=== PATIENT | female | born 2000 | race Caucasian/White ===

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

== ENCOUNTER 2021-06-14 12:04 | Emergency (ER) | payer OTHER, SELFPAY ==
--- NOTE | ~2021-06-14 | XR_ITS ---
EXAMINATION: XR chest 1V portable EXAM DATE: 06/14/2021 13:35 INDICATION: Cough, recent pneumonia TECHNIQUE: Portable AP frontal chest x-ray was obtained. There is no prior study for comparison. FINDINGS: Lungs are clear. There are no pleural effusions. The cardiomediastinal silhouette is with in normal limits. There is no pneumothorax suspected. The bones and soft tissues are unremarkable. IMPRESSION: Unremarkable chest x-ray exam. Reviewed, dictated and finalized at location B. ING CENTER DIRECTOR
[2021-06-14 12:08] VITALS: BP 141/73; PULSE 100; RESP 16; TEMP 36.3; O2SAT 98
--- NOTE | 2021-06-14 13:50 | ED.URI ---
HPI - URI/Sore Throat General Chief Complaint: Upper Respiratory Infection Stated Complaint: cough Time Seen by Provider: 06/14/21 13:17 Source: patient Mode of arrival: ambulatory Limitations: no limitations History of Present Illness HPI Narrative: This is a 21 year old female that presents to the ER for cold symptoms present over the last week. Reports cough, congestion, chills, chest tightness and shortness of breath. She has not received the covid or flu vaccines. Reports she had recent exposure to someone with pneumonia. Denies fever, or lower extremity edema. Related Data Allergies Allergy/AdvReac Type Severity Reaction Status Date / Time No Known Allergies Allergy Verified 06/14/21 13:13 Review of Systems Review of Systems: CONSTITUTIONAL: Denies fever ENT: Reports congestion CARDIOVASCULAR: Reports chest pain. Denies edema. RESPIRATORY: Reports cough and dyspnea. All systems reviewed & are unremarkable except as noted in HPI and below PMFSH Past Medical History Medical History (Updated 06/14/21 @ 16:10 by Padmaja Maddox PA-C) No active medical problems Social History Social History (Updated 06/14/21 @ 13:53 by Padmaja Maddox PA-C) Smoking status: Never smoker Exam Narrative: GENERAL: Well-appearing, well-nourished, and in no acute distress. HEAD: Normocephalic, atraumatic. EYES: EOMI. ENT: Nares clear, no rhinorrhea or epistaxis. Mucous membranes moist. Oropharynx without tonsillar hypertrophy exudate or other lesions. Left TM pearly corado non-bulging. Right external auditory canal with cerumen impaction NECK: Supple. No adenopathy or masses. CHEST: No respiratory distress. Mild scattered wheezes. No rales or rhonchi HEART: Regular rate and rhythm. No murmur heard. Normal peripheral pulses. EXTREMITIES: Normal range of motion. No edema. SKIN: Warm, dry, no rash. NEURO: No focal deficits. Alert and oriented x3. PSYCH: Normal mood and affect Course Vital Signs Vital signs: Vital Signs Temperature 97.4 F L 06/14/21 12:08 Pulse Rate 100 06/14/21 12:08 Respiratory Rate 16 06/14/21 12:08 Blood Pressure 141/73 H 06/14/21 12:08 Pulse Oximetry 98 06/14/21 12:08 Temperature 97.4 F L 06/14/21 12:08 Pulse Rate 100 06/14/21 12:08 Respiratory Rate 16 06/14/21 12:08 Blood Pressure 141/73 H 06/14/21 12:08 Pulse Oximetry 98 06/14/21 12:08 MDM - URI/Sore Throat MDM Narrative Medical decision making narrative: Patient presents to the emergency department for cold symptoms ongoing over the last week. She is afebrile and nontoxic-appearing. Oxygen saturation has remained normal on room air. Scattered wheezes noted on exam. Patient given dose of prednisone and albuterol with improvement. CBC and metabolic panel without concerning findings. EKG without acute ST changes and baseline troponin is negative. Influenza screen is negative. SARS-CoV-2 was sent. Chest x-ray without acute cardiopulmonary abnormality. Patient is PERC criteria negative. Patient was updated on case findings. She is stable and felt appropriate for further outpatient evaluation. Was instructed on continued care of viral infection. She was given warnings to return to the ER Lab Data Attestation: I reviewed the patient's lab results. Result diagrams: 06/14/21 14:17 06/14/21 14:17 Labs: Lab Results 06/14/21 06/14/21 06/14/21 Range/Units 14:05 14:17 14:17 WBC 8.4 (4.5-10.0) K/mm3 RBC 4.38 (4.2-5.4) M/mm3 Hgb 12.9 (12.0-15.0) g/dL Hct 38.9 (37.0-47.0) % MCV 88.8 (80-100) fl MCH 29.5 (26-34) pg MCHC 33.2 (32-36) g/dl RDW 11.9 (11.5-14.5) % Plt Count 386 H (150-375) k/mm3 MPV 9.2 (7.4-10.4) fl Immature Gran % (Auto) 0.5 (0-0.5) % Neut % (Auto) 59.1 (45.5-73.1) % Lymph % (Auto) 31.3 (18.3-44.2) % [place] % (Auto) 5.7 (2.6-8.5) % Eos % (Auto) 2.2 (0-4.4) % Baso % (Auto) 1.2 (0.2-1.2) % L
[2021-06-14] MEDS: ALBUTEROL SULFATE (*SP) AEROSOL 1 PUFF 2 PUFF INHALATION (13:57)
[2021-06-14] MEDS: predniSONE 20 MG TABLET 40 MG PO (14:13)
[2021-06-14 14:22] LABS: Basophils Absolute Auto 0.1 K/mm3 (0.0-0.1); Basophils Percent Auto 1.2 % (0.2-1.2); Eosinophils Absolute Auto 0.2 K/mm3 (0-0.3); Eosinophils Percent Auto 2.2 % (0-4.4); Hematocrit 38.9 % (37.0-47.0); Hemoglobin 12.9 g/dL (12.0-15.0); Immature Granulocyte Absolute 0.04 K/mm3 (0.00-0.031); Immature Granulocyte Percent A 0.5 % (0-0.5); Lymphocytes Absolute Auto 2.62 K/mm3 (0.9-3.2); Lymphocytes Percent Auto 31.3 % (18.3-44.2); Mean Corpuscular HGB Conc 33.2 g/dl (32-36); Mean Corpuscular Hemoglobin 29.5 pg (26-34); Mean Corpuscular Volume 88.8 fl (80-100); Mean Platelet Volume 9.2 fl (7.4-10.4); Monocytes Absolute Auto 0.5 K/mm3 (0.1-0.6); Monocytes Percent Auto 5.7 % (2.6-8.5); Neutrophils Absolute Auto 4.9 K/mm3 (1.3-6.7); Neutrophils Percent Auto 59.1 % (45.5-73.1); Platelet Count Result 386 k/mm3 (150-375); Red Blood Count 4.38 M/mm3 (4.2-5.4); Red Cell Distribution Width 11.9 % (11.5-14.5); White Blood Count 8.4 K/mm3 (4.5-10.0)
[2021-06-14 14:37] LABS: Anion Gap 6 mmol/L (8-16); Blood Urea Nitrogen 11 mg/dL (7-17); Calcium 9.2 mg/dL (8.4-10.2); Carbon Dioxide 28 mmol/L (22-30); Chloride 104 mmol/L (98-107); Estimated CRCL calculation 113 ml/min; Estimated Glomerular Filt Rate > 60; Glucose 100 mg/dL (65-110); Potassium 3.8 mmol/L (3.4-5.0); Sodium 138 mmol/L (137-145)
[2021-06-14 14:39] LABS: Prothrombin Time 12.7 Seconds (11.1-14.7)
[2021-06-14 14:40] LABS: Partial Thromboplastin Time 29.8 SECONDS (22.3-36.8)
[2021-06-14 14:52] LABS: Troponin I < 0.012 ng/mL (0.000-0.034)
--- NOTE | 2021-06-14 15:00 | ECG_ITS ---
Measurements Intervals [place] Rate: 76 P: 7 SC: 112 QRS: 22 QRSD: 97 T: 1 QT: 373 QTc: 420 Interpretive Statements SINUS RHYTHM WITH SHORT SC INTERVAL INCOMPLETE RIGHT BUNDLE BRANCH BLOCK CONSIDER INFERIOR INFARCT, AGE INDETERMINATE BASELINE ARTIFACT- I, II, AVR BORDERLINE ECG Electronically Signed On 06-14-2021 20:05:48 SPANISH INTERPRETER by Bull Ward D.O.
[2021-06-14 16:46] VITALS: PULSE 92; RESP 16; O2SAT 98
[2021-06-16 14:03] LABS: SARS-CoV-2 RNA PCR Negative (Negative)
== END 2021-06-14 16:47 | disposition home or self-care (01) ==
PROVIDERS: Physician Assistant; Emergency Provider Emergency Medicine
DX: J20.9 Acute bronchitis, unspecified (principal); Z20.822 Contact with and (suspected) exposure to COVID-19
CPT/HCPCS: 36415; 71045; 80048; 84484; 85025; 85610; 85730; 87804; 93005; 94640; 99284; A9270; C9803; J7512; U0003; U0005

== ENCOUNTER 2021-08-25 13:02 | Outpatient (CLI) | payer OTHER, SELFPAY ==
[2021-08-25 14:11] LABS: Alanine Aminotransferase 16 U/L (4-35); Albumin Level 4.7 g/dL (3.5-5.1); Alkaline Phosphatase 52 U/L (38-126); Anion Gap 11 mmol/L (8-16); Aspartate Amino Transferase 20 U/L (14-36); Bilirubin,Total 1.2 mg/dL (0.2-1.3); Blood Urea Nitrogen 10 mg/dL (7-17); Calcium 9.2 mg/dL (8.4-10.2); Carbon Dioxide 23 mmol/L (22-30); Chloride 104 mmol/L (98-107); Estimated Glomerular Filt Rate > 60; Glucose 122 mg/dL (65-110); Potassium 3.7 mmol/L (3.4-5.0); Sodium 138 mmol/L (137-145)
[2021-08-25 14:29] LABS: Free T4 Free Thyroxine 0.83 ng/mL (0.78-2.19); Vitamin D 25 Hydroxy 34.2 ng/mL
[2021-08-25 14:45] LABS: Thyroid Stimulating Hormone 0.906 uIU/mL (0.465-4.680)
[2021-08-25 15:32] LABS: Folic Acid 13.8 ng/mL (2.76->20)
[2021-08-29 05:33] LABS: DHEA-Sulfate 386 mcg/dL (51-321); Insulin Level Total 141.2 uIU/mL (<=19.6); Thyroid Peroxidase Antibodies 51 IU/mL (<9)
[2021-09-01 06:12] LABS: Triiodothyronine T3 Free 3.4 pg/mL (3.0-4.7)
[2021-09-02 17:59] LABS: Testosterone Free 4.6 pg/mL (0.1-6.4); Testosterone Total 24 ng/dL (2-45)
== END 2021-08-25 13:03 | disposition home or self-care (01) ==
LOC: ANHLAB 13:05
PROVIDERS: Visit Provider Internal Medicine Endocrinology, Diabetes & Metabolism
DX: E28.2 Polycystic ovarian syndrome (principal); E06.3 Autoimmune thyroiditis; E55.9 Vitamin D deficiency, unspecified; E53.8 Deficiency of other specified B group vitamins
CPT/HCPCS: 36415; 80053; 82306; 82607; 82627; 82746; 83525; 84402; 84403; 84439; 84443; 84481; 86376

== ENCOUNTER 2022-02-21 13:32 | Emergency (ER) | payer OTHER, SELFPAY ==
[2022-02-21 13:48] VITALS: BP 135/71; PULSE 98; RESP 18; TEMP 37.4; O2SAT 99
--- NOTE | 2022-02-21 13:52 | ED.GENADULT ---
HPI - General Adult General Chief complaint: Eye Problems Stated complaint: lt eye irritation History of Present Illness HPI narrative: Pleasant 21 y/o female. PMHx non-contributory. Presents to [facility] clinic today with acute complaints of LT eye irritation, lacrimation, and pruritus. Manifestations present for the past 72 hours. No eye pain or visual loss. No direct visual traumas. She does not wear corrective prescriptive lenses. Client also notes crustation on her lower lid when awakening in AM. No congestion or additional concerns. Related Data Home Medications Medication Instructions Recorded Confirmed No Home Medications 02/21/22 02/21/22 Allergies Allergy/AdvReac Type Severity Reaction Status Date / Time No Known Allergies Allergy Verified 02/21/22 13:51 Review of Systems Review of Systems: CONSTITUTIONAL: Denies fever, chills, sweats. EYES: Denies visual changes. Positive redness, discharge LT. ENT: Denies rhinorrhea, congestion, sore throat, otalgia. CARDIOVASCULAR: Denies chest pain, palpitations, edema. RESPIRATORY: Denies dyspnea, wheezing, cough GASTROINTESTINAL: Denies abdominal pain, nausea, vomiting, diarrhea. GENITOURINARY: Denies dysuria, hematuria, abnormal discharge SKIN: Denies rash or itching. MUSCULOSKELETAL: Denies acute back pain, joint pain, or myalgia. NEUROLOGIC: Denies numbness, or focal weakness. PSYCHIATRIC: Denies anxiety or depression. [facility] Past Medical History Medical History No active medical problems Social History Social History Smoking status: Never smoker Exam Narrative: GENERAL: This is a well-nourished, well-developed adult, in no apparent distress. HEAD: normocephalic, atraumatic. EYES: PERRL. Sclera clear/white RT. There is LT conjunctival erythema and residual yellow drainage to lower lid. EOM movements intact. MAMTA. Visual acuity 20/25 bilaterally. EARS: External ears normal. NOSE: External nose normal. THROAT: Mucous membranes moist. NECK: Neck supple, non-tender. CARDIOVASCULAR: Regular rate and rhythm. RESPIRATORY: Clear to auscultation. GASTROINTESTINAL: Abdomen soft, non-tender, nondistended. SKIN: warm, intact NEURO: Alert, active, and age appropriate. Course Course Level of Care: Express Care Visit Vital Signs Vital signs: Vital Signs Temperature 37.4 C 02/21/22 13:48 Pulse Rate 98 02/21/22 13:48 Respiratory Rate 18 02/21/22 13:48 Blood Pressure 135/71 02/21/22 13:48 Pulse Oximetry 99 02/21/22 13:48 Oxygen Delivery Room Air 02/21/22 13:48 Temperature 37.4 C 02/21/22 13:48 Pulse Rate 98 02/21/22 13:48 Respiratory Rate 18 02/21/22 13:48 Blood Pressure 135/71 02/21/22 13:48 Pulse Oximetry 99 02/21/22 13:48 Oxygen Delivery Room Air 02/21/22 13:48 Medical Decision Making MDM Narrative Medical decision making narrative: -PE consistent with Conjunctivitis LT. -No visual deficits. -Start OP Neomycin/Polymyxin HC Ophthalmic Gtts regimen as directed. -Resume additional hand hygiene and cool compress remedies prn. -PCP F/U 1 WK. -ER W/sudden severe visual pain or loss. Differential Diagnosis Differential Diagnosis: Differential Diagnosis: Consideration of the following conditions may be warranted for the presenting problem, they are not final diagnoses: Adult Blepharitis, Conjunctivitis, Chemical Burn, Contact Lens Complications, Dry eyes, Epidemic Keratoconjunctivitis, Episcleritis, Acute Angle-Closure Glaucoma. or other. Vital Signs Vital Signs: Vital Signs Temperature 37.4 C 02/21/22 13:48 Pulse Rate 98 02/21/22 13:48 Respiratory Rate 18 02/21/22 13:48 Blood Pressure 135/71 02/21/22 13:48 Pulse Oximetry 99 02/21/22 13:48 Oxygen Delivery Room Air 02/21/22 13:48 Temperature 37.4 C 02/21/22 13:48 Pulse Rate 98 02/21
== END 2022-02-21 13:55 | disposition home or self-care (01) ==
PROVIDERS: Emergency Provider Nurse Practitioner Adult Health
DX: H10.9 Unspecified conjunctivitis (principal)
CPT/HCPCS: 99213; G0463

== ENCOUNTER 2023-02-12 14:28 | Outpatient (CLI) | payer OTHER, SELFPAY ==
--- NOTE | ~2023-02-12 | XR_ITS ---
EXAMINATION: XR lumbar spine 2-3V DATE: 02/12/2023 14:42 INDICATION: Low back pain TECHNIQUE: Anteroposterior and lateral views of the lumbar spine, and cone-down lateral view of the l umbosacral junction were obtained. COMPARISON: None. FINDINGS: No fracture, dislocation, or subluxation. The vertebral body heights, alignment, and interv ertebral disc spaces are normal. The paravertebral soft tissues are unremarkable. IMPRESSION: 1. No acute osseous abnormality. Reviewed, dictated and finalized at location L.
== END 2023-02-12 14:29 | disposition home or self-care (01) ==
PROVIDERS: Visit Provider Family Medicine
DX: M54.50 Low back pain, unspecified (principal)
CPT/HCPCS: 72100

== ENCOUNTER 2024-04-28 10:23 | Outpatient (CLI) | payer OTHER, SELFPAY ==
[2024-04-28 10:27] VITALS: BP 138/81; PULSE 71
[2024-04-28 10:45] VITALS: BP 138/81; PULSE 79
[2024-04-28 10:57] LABS: Add Urine Microscopic? YES; Appearance Urine Cloudy (Clear); Bacteria Urine Rare /hpf; Bilirubin Urine Negative (Negative); Blood Urine Negative (Negative); Color Urine Yellow (Yellow); Glucose Urine UA Negative (Negative); Ketones Urine Negative (Negative); Leukocyte Esterase Ur 1+ LEU/UL (Negative); Nitrate Urine Negative (Negative); Non Pathogenic Casts 0-2; Protein Urine 1+ mg/dL (Negative); RBC Urine 0-2 /hpf (0-2); Specific Grav Ur 1.017 (1.001-1.035); Squamous Epithelial Cell Urine Moderate /hpf (Few); Urobilinogen Urine 0.2 mg/dL (<2.0)
[2024-04-28 10:59] LABS: Creatinine Urine 106.8 mg/dL; Total Protein Urine Random 29 mg/dL; Ur Ttl Prot Creatinine Ratio 0.27 mg/mg (0-0.20)
[2024-04-28 11:00] VITALS: BP 137/85; PULSE 71
[2024-04-28 11:04] LABS: Alanine Aminotransferase 13 U/L (6-35); Albumin Level 3.3 g/dL (3.5-5.1); Alkaline Phosphatase 106 U/L (38-126); Anion Gap 8 mmol/L (4-12); Aspartate Amino Transferase 16 U/L (14-36); Bilirubin,Total 0.3 mg/dL (0.2-1.3); Blood Urea Nitrogen 5 mg/dL (7-17); Calcium 8.5 mg/dL (8.4-10.2); Carbon Dioxide 21 mmol/L (22-30); Chloride 106 mmol/L (98-107); Estimated Glomerular Filt Rate > 60; Glucose 81 mg/dL (65-110); Potassium 3.6 mmol/L (3.4-5.0); Sodium 135 mmol/L (137-145); Uric Acid 5.4 mg/dL (2.5-7.5)
[2024-04-28 11:05] LABS: Basophils Absolute Auto 0.1 K/mm3 (0.0-0.1); Basophils Percent Auto 0.6 % (0.2-1.2); Eosinophils Absolute Auto 0.2 K/mm3 (0-0.3); Eosinophils Percent Auto 1.8 % (0-4.4); Hematocrit 33.8 % (37.0-47.0); Hemoglobin 11.4 g/dL (12.0-15.0); Immature Granulocyte Absolute 0.05 K/mm3 (0.00-0.031); Immature Granulocyte Percent A 0.5 % (0-0.5); Lymphocytes Absolute Auto 2.02 K/mm3 (0.9-3.2); Lymphocytes Percent Auto 18.9 % (18.3-44.2); Mean Corpuscular HGB Conc 33.7 g/dl (32-36); Mean Corpuscular Hemoglobin 30.4 pg (26-34); Mean Corpuscular Volume 90.1 fl (80-100); Mean Platelet Volume 10.4 fl (7.4-10.4); Monocytes Absolute Auto 0.7 K/mm3 (0.1-0.6); Monocytes Percent Auto 6.1 % (2.6-8.5); Neutrophils Absolute Auto 7.7 K/mm3 (1.3-6.7); Neutrophils Percent Auto 72.1 % (45.5-73.1); Platelet Count Result 257 k/mm3 (150-375); Red Blood Count 3.75 M/mm3 (4.2-5.4); Red Cell Distribution Width 12.9 % (11.5-14.5); White Blood Count 10.7 K/mm3 (4.5-10.0)
[2024-04-28 11:15] VITALS: BP 136/85; PULSE 71
[2024-04-28 11:30] VITALS: BP 144/88; PULSE 69
[2024-04-28 11:52] VITALS: TEMP 36.6
== END 2024-04-28 11:30 | disposition home or self-care (01) ==
LOC: ANHOBOP 10:26 → ANHOBPP 10:28
PROVIDERS: Visit Provider Obstetrics & Gynecology
DX: O16.9 Unspecified maternal hypertension, unspecified trimester (principal); Z3A.00 Weeks of gestation of pregnancy not specified
CPT/HCPCS: 36415; 59025; 80053; 81001; 82570; 84156; 84550; 85025; 87086; 99199

== ENCOUNTER 2024-04-29 13:04 | Outpatient (NON) | payer OTHER, SELFPAY ==
[2024-04-29 13:18] VITALS: BMI 31.0
[2024-04-29 13:39] LABS: Collection Time Urine 24 HOURS
[2024-04-29 13:47] LABS: Total Protein Urine Random 18 mg/dL
[2024-04-29 13:49] LABS: Total Protein Urine 24 Hr 414 mg/24hr (28-141); Total Volume 24 Hour Urine 2300 ml
[2024-04-29 13:50] LABS: Total Volume 24 Hour Urine 2300 ml
[2024-04-29 13:56] LABS: Creatinine Clearance Urine 245.4 ml/min (75-125); Creatinine Urine 64.7 mg/dL; Patient Weight 175 Lbs
== END 2024-04-29 13:05 | disposition home or self-care (01) ==
PROVIDERS: Visit Provider Obstetrics & Gynecology
DX: O16.9 Unspecified maternal hypertension, unspecified trimester (principal); Z3A.00 Weeks of gestation of pregnancy not specified
CPT/HCPCS: 81050; 82575; 84156

== ENCOUNTER 2024-05-12 12:05 | Outpatient (RCR) | payer OTHER, SELFPAY ==
[2024-03-19 14:07] VITALS: BP 128/65; PULSE 81
--- NOTE | 2024-03-19 14:12 | PC.NURSE ---
[id number] reported strip & NST to dr johns. Pt c/o pain to back 5-12/08. leg/foot pain resolved. Per Tj pt to take Tylenol and apply heat/cold to painful area. pt states she will take medication at home. to follow up if pain does not resolved. Ok to be DCed
--- NOTE | ~2024-05-12 | US_ITS ---
EXAMINATION: US OB BPP wo non-stress DATE: 05/12/2024 13:46 INDICATION: Nonreactive tracing during third trimester . TECHNIQUE: Real-time pelvic ultrasound was performed. The interpreting radiologist was not present fo r the study. COMPARISON: None. FINDINGS: There is a single living fetus in each presentation. The placenta is on the maternal left. hea rt rate is 135 beats per minute (bpm). Amniotic fluid volume is subjectively normal with normal deepe st vertical pocket measurement of 5.8 cm. Biophysical profile performed by the technologist: breathing (30 sec sustained breathing in 30 minutes): 2 out of 2 movement (3 gross body movements in 30 minutes): 2 out of 2 tone (one episode of hbyiotf-wqfdxybww-plnqvij limb movement): 2 out of 2 Amniotic fluid pocket (2 cm): 2 out of 2 Total score: 8 out of 8 IMPRESSION: 1. Single living fetus in breech presentation with heart rate of 135 bpm. 2. Biophysical profile 8 out of 8. Reviewed, dictated and finalized at location B. W TAILER
--- NOTE | 2024-05-12 13:40 | PC.NURSE ---
Spoke with Dr Spencer. Reported reactive NST and / BPP. ok to DC at this time
[2024-05-12 14:06] VITALS: BP 141/89; PULSE 74
== END 2024-05-27 17:43 | disposition home or self-care (01) ==
LOC: ANHOBOP 12:05
PROVIDERS: Visit Provider Obstetrics & Gynecology
DX: O36.8190 Decreased fetal movements, unspecified trimester, not applicable or unspecified (principal); M54.9 Dorsalgia, unspecified; O26.899 Other specified pregnancy related conditions, unspecified trimester
CPT/HCPCS: 59025; 76819; J3010

== ENCOUNTER 2024-05-13 04:35 | Inpatient (IN) | payer OTHER, SELFPAY ==
[2024-05-13] VITALS (71 sets, daily range): BP systolic 124–148; BP diastolic 63–95; PULSE 63–162; RESP 1–22; TEMP 36.3–37.2; O2SAT 95–100; BMI 33.7
--- NOTE | ~2024-05-13 | US_ITS ---
EXAMINATION: US OB BPP wo non-stress DATE: 05/13/2024 09:47 INDICATION: Bleeding and nonreactive tracing during third trimester . TECHNIQUE: Real-time pelvic ultrasound was performed. The interpreting radiologist was not present fo r the study. COMPARISON: None. FINDINGS: There is a single living fetus in breech presentation. The placenta is maternal left. heart ra te is 145 beats per minute (bpm). Fluid in the bilateral renal pelvises measuring 3 mm in AP diameter on the right and 6 mm on the left, both which remain within normal limits. Amniotic fluid volume is subjectively normal with normal deepest vertical pocket measurement of 4.7 cm. Biophysical profile performed by the technologist: breathing (30 sec sustained breathing in 30 minutes): 0 out of 2 movement (3 gross body movements in 30 minutes): 2 out of 2 tone (one episode of xsdpuko-cqomyynzw-qvbopqe limb movement): 2 out of 2 Amniotic fluid pocket (2 cm): 2 out of 2 Total score: 6 out of 8 IMPRESSION: 1. Single living fetus in breech presentation with heart rate of 145 bpm. 2. Biophysical profile 6 out of 8. Reviewed, dictated and finalized at location B. COVER CUTTER
--- NOTE | 2024-05-13 05:11 | PC.NURSE ---
Dr. Spencer notified of patient arriving to the labor and delivery unit with complains of vaginal bleeding. New orders received to check the patient and to call back if the patient has made change and to notify if there is a large amount of blood with the check. notified that the patient has not been having contractions and that the FHTs are moderate variability with big accelerations.
--- NOTE | 2024-05-13 05:39 | PC.NURSE ---
Dr. Spencer updated about patients SVE of %/-3 with very little bleeding mostly clear mucus. New orders received to recheck cervix in one hour.
--- NOTE | 2024-05-13 05:46 | OBADM ---
This patient, Nancy Kaur, admitted to the OB room OB Post 117 for observation. Patient/family oriented to hospital policies and general routines including ID bracelet, bed and alarms, visiting hours, pain management, procedures, bathroom and other care routines, personal items, smoking policy, room service/diet, and visiting hours. Patient/Family are encouraged to report perceived risks to care and to ask questions if they do not understand what they are told or what they should do.
[2024-05-13] MEDS: LACTATED RINGERS 1,000 ML 125 ML IV CONT ×2 (11:45→20:38)
[2024-05-13 11:59] LABS: Basophils Absolute Auto 0.1 K/mm3 (0.0-0.1); Basophils Percent Auto 0.4 % (0.2-1.2); Eosinophils Absolute Auto 0.1 K/mm3 (0-0.3); Eosinophils Percent Auto 0.7 % (0-4.4); Hematocrit 34.8 % (37.0-47.0); Immature Granulocyte Absolute 0.12 K/mm3 (0.00-0.031); Immature Granulocyte Percent A 0.6 % (0-0.5); Lymphocytes Absolute Auto 2.32 K/mm3 (0.9-3.2); Lymphocytes Percent Auto 12.6 % (18.3-44.2); Mean Corpuscular HGB Conc 34.5 g/dl (32-36); Mean Corpuscular Volume 89.9 fl (80-100); Mean Platelet Volume 10.8 fl (7.4-10.4); Monocytes Percent Auto 5.4 % (2.6-8.5); Neutrophils Absolute Auto 14.8 K/mm3 (1.3-6.7); Neutrophils Percent Auto 80.3 % (45.5-73.1); Platelet Count Result 247 k/mm3 (150-375); Red Blood Count 3.87 M/mm3 (4.2-5.4); Red Cell Distribution Width 12.8 % (11.5-14.5); White Blood Count 18.5 K/mm3 (4.5-10.0)
[2024-05-13 12:48] LABS: HIV 1/2 Ab P24 Ag Result Negative (Negative)
--- NOTE | 2024-05-13 12:53 | P.HP_ITS ---
H&P: HPI History of Present Illness Date/Time: 05/13/24 12:53 Chief Complaint: vaginal bleeding Narrative: Patient is a 24 year old who presents at 25w3d for vaginal bleeding. She reported bloody mucus starting this morning. Mild cramping, no strong contractions on arrival. Good movement. Her has been complicated by preeclampsia without severe features and breech presentation. She was deepika tored this morning on labor and delivery and had slow change from 3-4cm. NST was nonreactive at the time of discharge, and BPP was 6/8. Decision was made to continue to monitor given equivocal testing and concern for early labor. Review of Systems Review of Systems: All systems reviewed & are unremarkable except as noted in HPI and below PMFSH Past Medical History Medical History No active medical problems Social History Social History Smoking status: Never smoker Meds Home Medications and Allergies Home Medications Medication Instructions Recorded Confirmed Type neomycin 3.5 mg-polymyxin 10,000 1 drp LEFT EYE Q8H 7 days #7.5 mL 02/21/22 Rx unit-hydrocort 10 mg/mL eye drop,susp polymyxin B sulfate 10,000 1 drp LEFT EYE Q3H 7 days #10 mL 02/22/22 Rx unit-trimethoprim 1 mg/mL eye drops (Polytrim) amoxicillin 875 mg tablet mg 05/13/24 History Allergies Allergy/AdvReac Type Severity Reaction Status Date / Time No Known Allergies Allergy Verified 02/21/22 13:51 Vital Signs Vital Signs - 24 hr 05/13/24 05:45 05/13/24 08:19 05/13/24 12:48 Pulse Rate 64 Blood Pressure 147/86 H Pulse Oximetry 96 Oxygen Delivery Room Air 05/13/24 12:49 Pulse Rate 93 Blood Pressure 124/63 Pulse Oximetry Oxygen Delivery Exam Const: General: comfortable and no acute distress HENMT: Mouth: Yes moist mucous membranes Resp: Effort & Inspection: normal respiratory effort Cardio: Rate: regular rate : Other: SVE: footling breech presentation, clear fluid SROM Skin: General skin exam: normal color Extrem: General: normal to inspection Psych: Mental Status: mental status grossly normal H&P: Results Labs Labs: Short CBC 05/13/24 Range/Units 11:51 WBC 18.5 H (4.5-10.0) K/mm3 Hgb 12.0 (12.0-15.0) g/dL Hct 34.8 L (37.0-47.0) % Plt Count 247 (150-375) k/mm3 Assessment and Plan Assessment and plan (1) Breech presentation: Code(s): O32.1XX0 - Maternal care for breech presentation, not applicable or unspecified Status: Acute Assessment and Plan: - breech presentation - patient presented in early labor and suddenly progressed to 6cm, at which time she PPROM'd and footling breech presentation was discovered - patient was emergently consented for primary c section - patient rolled to OR for emergency c section (2) Pre-eclampsia, mild: Code(s): O14.00 - Mild to moderate pre-eclampsia, unspecified trimester Status: Acute Assessment and Plan: - asymptomatic - BP mild range
--- NOTE | 2024-05-13 13:00 | W.PM.OBCSD ---
OB - Delivery Note Procedure Delivery date: 05/13/24 Pre-op diagnosis: Breech Presentation, Preeclampsia w/o severe features and Premature Rupture of Membranes Post-op Diagnosis: Same Delivery monitor: External FHT Prior to decision for section, ACOG/SM labor guidelines were considered and discussed with the patient and staff. Decision made to proceed with the section.: Yes Procedure Performed: Primary Primary branch: low cervical, transverse Surgeon: Otto Spencer MD Anesthesia type: General Description of Procedure/Findings: The patient was taken to the operating room where she was placed in the dorsal supine position with a leftward tilt. The electronic monitor was placed and heart rate was found to be reassuring. She was prepped and draped in the normal emergent sterile fashion, and general anesthesia was induced. A Pfannenstiel skin incision was made with the scalpel and carried through to the underlying layer of fascia with the scalpel. The fascia was incised in the midline and the incision extended laterally bluntly. The rectus muscles were then in the midline, and the peritoneum entered bluntly. The peritoneal incision was extended superiorly and inferiorly with good visualization of the bladder. With the bladder blade providing retraction and visualization, the lower uterine segment was incised in a transverse fashion with the scalpel. The uterine incision was then extended laterally. The bladder blade was removed and the 's breech was elevated and delivered atraumatically. The remainder of the was then delivered without difficulty, and the 's nose and mouth were suctioned with the bulb suction. The umbilical cord was doubly clamped and cut. The was then handed off to the waiting nursing staff. Specimens then obtained as listed below. The placenta was then removed manually and the uterus was exteriorized and cleared of all clots and debris. The uterine incision was repaired with 0-Monocryl in a running, interlocked fashion. A second layer of the same suture imbricated and obtained hemostasis. The posterior cul-de-sac was manually cleared of all clots and debris. The uterus was returned to the abdomen. The gutters were then manually cleared of all clots and debris.? The uterine incision was visualized to be hemostatic. Surgicell powder was applied to the uterine incision. The fascia was reapproximated with 0-Vicryl in a running fashion. The subcutaneous tissues were irrigated with warmed normal saline, and hemostasis was assured. The skin was closed with 4-0 monocryl in a running subcuticular stitch. Fundal pressure was applied to express remaining intrauterine clots and debris. The patient tolerated the procedure well. Sponge, lap, and needle counts were correct times three per nursing. The patient was taken to the recovery room in stable condition. Specimen: Yes Estimated Blood Loss: 380 Pathology: Yes Complications: No immediate complications Condition: Stable Disposition: Floor [place] Baby Date of : 05/13/24 Gestational Age by Date: 35 Infant gender: Female Weight (pounds): 4 Weight (ounces): 9 presentation: breech (footling) Placenta delivery description: Expressed Cord Vessel Description: 3 Vessels and Clamped/Cut
[2024-05-13] MEDS: MORPHINE SULFATE INJ (*CRX) 10 MG/ML AMP 2 MG IV PUSH (13:10)
[2024-05-13 13:38] LABS: Rapid Plasma Reagin Non-Reactive (NonReactive)
[2024-05-13] MEDS: ceFAZolin 2 GM/D5W 50 ML 2 GM/50 ML BAG IVPB ×2 (13:43→20:08)
[2024-05-13] MEDS: HYDROmorphon 0.2MG/ML PCA(*CRX 6 MG/30 ML PCA.VIAL 1 MG IV CONT (13:46)
[2024-05-13] MEDS: AZITHROMYCIN 500 MG/NS 250 ML 500 MG/250 ML BAG 250 MG IVPB (14:17)
[2024-05-13] MEDS: OXYTOCIN 30 UNITS/NS 500 ML 30 UNITS/500 ML BAG 125 UNITS IV CONT ×2 (15:55→20:05)
--- NOTE | 2024-05-13 16:00 | OBPPTRN ---
Patient transferred to post room #287 via bed. Support person present. Oriented to unit, room, information board, rooming in, admission packet and security measures. Patient verbalizes understanding.
[2024-05-13] MEDS: ACETAMINOPHEN 325 MG TABLET 650 MG PO (17:36)
[2024-05-13] MEDS: SIMETHICONE 80 MG TAB.CHEW PO (17:36)
[2024-05-13] MEDS: DOCUSATE SODIUM 100 MG CAPSULE PO (17:36)
[2024-05-13] MEDS: KETOROLAC 15 MG/ML VIAL (*BKC) IV PUSH (17:37)
[2024-05-13 18:04] LABS: Hematocrit 31.4 % (37.0-47.0); Hemoglobin 10.5 g/dL (12.0-15.0); Mean Corpuscular HGB Conc 33.4 g/dl (32-36); Mean Corpuscular Hemoglobin 31.3 pg (26-34); Mean Corpuscular Volume 93.5 fl (80-100); Mean Platelet Volume 10.6 fl (7.4-10.4); Platelet Count Result 226 k/mm3 (150-375); Red Blood Count 3.36 M/mm3 (4.2-5.4); White Blood Count 23.7 K/mm3 (4.5-10.0)
[2024-05-13 18:25] LABS: Lymphocytes Absolute Manual 1.42 K/mm3 (1.1-4.5); Monocytes Absolute Manual 1.18 K/mm3 (0.1-0.90); Monocytes Percent Manual 5 % (3-9); Neutrophils Percent Manual 89 % (46-73); Platelet Estimate Adequate (Adequate); Schistocytes None Seen; Total Cells Counted 100
[2024-05-14] VITALS (9 sets, daily range): BP systolic 122–137; BP diastolic 60–84; PULSE 68–79; RESP 14–18; TEMP 36.8–37.1; O2SAT 95–99
[2024-05-14] MEDS: ACETAMINOPHEN 325 MG TABLET 650 MG PO ×4 (00:25→18:10)
[2024-05-14] MEDS: KETOROLAC 15 MG/ML VIAL (*BKC) IV PUSH ×3 (00:25→12:37)
[2024-05-14] MEDS: HYDROmorphon 0.2MG/ML PCA(*CRX 6 MG/30 ML PCA.VIAL 1 MG IV CONT (02:45)
[2024-05-14] MEDS: DEXTROSE 5%/0.45% SOD CHL 1,000 ML 125 ML IV CONT (04:46)
[2024-05-14 05:07] LABS: Basophils Absolute Auto 0.1 K/mm3 (0.0-0.1); Basophils Percent Auto 0.6 % (0.2-1.2); Eosinophils Absolute Auto 0.1 K/mm3 (0-0.3); Eosinophils Percent Auto 0.6 % (0-4.4); Hematocrit 27.9 % (37.0-47.0); Hemoglobin 9.4 g/dL (12.0-15.0); Immature Granulocyte Absolute 0.11 K/mm3 (0.00-0.031); Immature Granulocyte Percent A 0.7 % (0-0.5); Lymphocytes Absolute Auto 1.98 K/mm3 (0.9-3.2); Lymphocytes Percent Auto 12.2 % (18.3-44.2); Mean Corpuscular HGB Conc 33.7 g/dl (32-36); Mean Corpuscular Hemoglobin 30.8 pg (26-34); Mean Corpuscular Volume 91.5 fl (80-100); Mean Platelet Volume 10.8 fl (7.4-10.4); Monocytes Absolute Auto 0.9 K/mm3 (0.1-0.6); Monocytes Percent Auto 5.4 % (2.6-8.5); Neutrophils Absolute Auto 13.1 K/mm3 (1.3-6.7); Neutrophils Percent Auto 80.5 % (45.5-73.1); Platelet Count Result 221 k/mm3 (150-375); Red Blood Count 3.05 M/mm3 (4.2-5.4); Red Cell Distribution Width 13.2 % (11.5-14.5); White Blood Count 16.2 K/mm3 (4.5-10.0)
--- NOTE | 2024-05-14 08:25 | P.PNOB_ITS ---
OB - PN: Subj Subjective Date/time seen: 05/14/24 08:25 Patient comments: no complaints, pain well controlled, tolerating diet and flatus present OB - PN: Obj Data Labs 05/14/24 04:28 Labs: Laboratory Results - last 24 hr 05/13/24 05/13/24 05/14/24 11:51 17:57 04:28 WBC 18.5 H 23.7 H 16.2 H RBC 3.87 L 3.36 L 3.05 L Hgb 12.0 10.5 L 9.4 L Hct 34.8 L 31.4 L 27.9 L MCV 89.9 93.5 91.5 MCH 31.0 31.3 30.8 MCHC 34.5 33.4 33.7 RDW 12.8 13.0 13.2 Plt Count 247 226 221 MPV 10.8 H 10.6 H 10.8 H Immature Gran % (Auto) 0.6 H Not Reportable 0.7 H Neut % (Auto) 80.3 H Not Reportable 80.5 H Lymph % (Auto) 12.6 L Not Reportable 12.2 L [place] % (Auto) 5.4 Not Reportable 5.4 Eos % (Auto) 0.7 Not Reportable 0.6 Baso % (Auto) 0.4 Not Reportable 0.6 Lymph # (Auto) 2.32 Not Reportable 1.98 [place] # (Auto) 1.0 H Not Reportable 0.9 H Eos # (Auto) 0.1 Not Reportable 0.1 Baso # (Auto) 0.1 Not Reportable 0.1 Abs Immat Gran (auto) 0.12 H Not Reportable 0.11 H Absolute Neuts (auto) 14.8 H Not Reportable 13.1 H Absolute Nucleated RBC 0.000 Not Reportable 0.000 Total Counted 100 Neutrophils % (Manual) 89 H Lymphocytes % (Manual) 6.0 L Monocytes % (Manual) 5 Nucleated RBC % 0.0 Not Reportable 0.0 Abs Lymphs (Manual) 1.42 Abs Monocytes (Manual) 1.18 H Platelet Estimate Adequate Schistocytes None seen RPR Non-reactive HIV 1&2 Ab/P24 Ag 4thGn Negative Blood Type O Positive Antibody Screen Negative Imaging Radiologist's impression: Impressions Obstetrics US/Biophysical Profile 05/13/24 09:52 IMPRESSION: 1. Single living fetus in breech presentation with heart rate of 145 bpm. 2. Biophysical profile 6 out of 8. OB - PN A/P Plan day: 1 Comments: Post Op LTCS - no problems, routine recovery Time Spent With Patient Time: Total time spent is greater than 50% in coordination of care (as documented) at patient's floor/unit and/or counseling patient: Exam Const: General: cooperative, healthy appearing, comfortable and no acute distress Resp: Auscultation: no crackles, no rales, no rhonchi and no wheezes Cardio: Rhythm: regular rhythm Heart sounds: no click and no murmurs GI: Inspection: non-distended Auscultation: normal bowel sounds Extrem: General: normal to inspection, no pedal edema and no calf tenderness
[2024-05-14] MEDS: SIMETHICONE 80 MG TAB.CHEW PO ×3 (08:51→18:09)
[2024-05-14] MEDS: MULTIVIT/MIN/PREN/FOL AC/IRON TABLET 1 TAB PO (08:51)
[2024-05-14] MEDS: DOCUSATE SODIUM 100 MG CAPSULE PO ×2 (08:51→18:09)
[2024-05-14] MEDS: POLYSACCHARIDE IRON COMPLEX 150 MG CAPSULE PO ×2 (08:51→18:09)
[2024-05-14] MEDS: HYDROcodone/acetaminophen (*CRX) 5-325 MG TABLET 1 TAB PO ×2 (11:56→15:44)
[2024-05-14] MEDS: LIDOCAINE 5% PATCH 1 PATCH TRANSDERM (12:38)
--- NOTE | 2024-05-14 13:42 | WPDANESPN ---
Anes - Prog Note Post-Op Date/Time: 05/14/24 13:42 Cardiovascular status: normal Respiratory status: normal Airway patency: baseline Mental status: baseline Post-Op hydration status: normal Vital Signs: Last Vital Signs Temp 37.0 C 05/14/24 12:54 Pulse 68 05/14/24 12:54 Resp 18 05/14/24 12:54 BP 122/60 05/14/24 12:54 Pulse Ox 98 05/14/24 12:54 O2 Del Method Room Air 05/14/24 08:35 O2 Flow Rate 10 05/13/24 14:06 Pain Score (VAS): 10/08 I/O: Intake & Output 05/13/24 05/14/24 05/14/24 23:59 07:59 15:59 Intake Total 866.0 1018 1006 Output Total 484 809 7211 Balance 716.0 743 -94 Laboratory Tests 05/14/24 04:28 05/13/24 05/14/24 17:57 04:28 WBC 23.7 H 16.2 H RBC 3.36 L 3.05 L Hgb 10.5 L 9.4 L Hct 31.4 L 27.9 L MCV 93.5 91.5 MCH 31.3 30.8 MCHC 33.4 33.7 RDW 13.0 13.2 Plt Count 226 221 MPV 10.6 H 10.8 H Immature Gran % (Auto) Not Reportable 0.7 H Neut % (Auto) Not Reportable 80.5 H Lymph % (Auto) Not Reportable 12.2 L [place] % (Auto) Not Reportable 5.4 Eos % (Auto) Not Reportable 0.6 Baso % (Auto) Not Reportable 0.6 Lymph # (Auto) Not Reportable 1.98 [place] # (Auto) Not Reportable 0.9 H Eos # (Auto) Not Reportable 0.1 Baso # (Auto) Not Reportable 0.1 Abs Immat Gran (auto) Not Reportable 0.11 H Absolute Neuts (auto) Not Reportable 13.1 H Absolute Nucleated RBC Not Reportable 0.000 Total Counted 100 Neutrophils % (Manual) 89 H Lymphocytes % (Manual) 6.0 L Monocytes % (Manual) 5 Nucleated RBC % Not Reportable 0.0 Abs Lymphs (Manual) 1.42 Abs Monocytes (Manual) 1.18 H Platelet Estimate Adequate Schistocytes None seen Post-procedural complaints: none Patient Feedback: Patient satisfied with anesthetic care.
--- NOTE | 2024-05-14 15:57 | PC.NURSE ---
1157. Introductions were made, then consulted with patient to assess needs related to . Mother led the conversation with her?plans to feed?her infant and the?experience so far. Mom reports that she is bottle feeding and her plans are to exclusively bottle feed. We reviewed bottle feeding techniques, frequencies of feds, voids and stools, and infant weight gain. Asked mom about WIC referral and she accepted the offer. She reports her preferred office location is the [facility].
--- NOTE | 2024-05-14 15:59 | PC.NURSE ---
1300. WIC form faxed to the [place] office. Primary RN notified.
[2024-05-14] MEDS: IBUPROFEN 600 MG TABLET PO (18:10)
[2024-05-14] MEDS: HYDROCORTISONE 1% 30 GM CREAM 1 APPLIC TOPICAL (20:39)
[2024-05-15 00:27] VITALS: BP 140/81; PULSE 86
[2024-05-15] MEDS: IBUPROFEN 600 MG TABLET PO ×4 (00:27→19:50)
[2024-05-15] MEDS: HYDROcodone/acetaminophen (*CRX) 5-325 MG TABLET 1 TAB PO ×4 (00:27→19:50)
[2024-05-15] MEDS: ACETAMINOPHEN 325 MG TABLET 650 MG PO ×4 (00:27→19:49)
[2024-05-15 04:15] VITALS: BP 134/83; PULSE 71
[2024-05-15] MEDS: MULTIVIT/MIN/PREN/FOL AC/IRON TABLET 1 TAB PO (07:32)
[2024-05-15] MEDS: POLYSACCHARIDE IRON COMPLEX 150 MG CAPSULE PO ×2 (07:32→17:16)
[2024-05-15] MEDS: SIMETHICONE 80 MG TAB.CHEW PO ×3 (07:32→17:16)
[2024-05-15] MEDS: DOCUSATE SODIUM 100 MG CAPSULE PO ×2 (07:32→17:16)
[2024-05-15 07:55] VITALS: BP 131/80; PULSE 61; RESP 18; TEMP 37.6; O2SAT 99
--- NOTE | 2024-05-15 08:42 | PM.OBPNVD ---
OB - PN: Subj Subjective Date/time seen: 05/15/24 08:42 Interval history: POD#2 s/p PLTCS under general anesthesia Doing well, pain controlled on oral medications Voiding without issue Passing flatus Baby doing well, bottle feeding, working on weight gain OB - PN: Obj Data Labs 05/14/24 04:28 OB - PN A/P Assessment and Plan (1) Pre-eclampsia, mild: Code(s): O14.00 - Mild to moderate pre-eclampsia, unspecified trimester Status: Acute Assessment and Plan: - asymptomatic - BP normotensive to mild range - continue to monitor closely (2) S/P : Code(s): Z98.891 - History of uterine scar from previous surgery Status: Acute Plan day: 2 Plan: routine care Time Spent With Patient Time: Total time spent is greater than 50% in coordination of care (as documented) at patient's floor/unit and/or counseling patient: Review of Systems Review of Systems: All systems reviewed & are unremarkable except as noted in HPI and below Exam Const: General: comfortable and no acute distress Orientation/consciousness: patient oriented x3 Resp: Effort & Inspection: normal respiratory effort GI: Other: incision c/d/i
[2024-05-15] MEDS: HYDROCORTISONE 1% 30 GM CREAM 1 APPLIC TOPICAL (10:17)
[2024-05-15 12:51] VITALS: BP 127/63; PULSE 78; RESP 16; TEMP 36.9; O2SAT 99
[2024-05-15] MEDS: LIDOCAINE 5% PATCH 1 PATCH TRANSDERM (14:23)
[2024-05-15 16:25] VITALS: BP 144/94; PULSE 73; RESP 18; TEMP 37.2; O2SAT 100
[2024-05-15 20:07] VITALS: BP 144/93; PULSE 111; RESP 16; TEMP 37.3; O2SAT 100
[2024-05-16] MEDS: ACETAMINOPHEN 325 MG TABLET 650 MG PO ×4 (03:07→21:10)
[2024-05-16] MEDS: IBUPROFEN 600 MG TABLET PO ×4 (03:07→21:11)
[2024-05-16] MEDS: HYDROcodone/acetaminophen (*CRX) 5-325 MG TABLET 1 TAB PO ×4 (03:08→21:11)
[2024-05-16 04:25] VITALS: BP 138/97; PULSE 98; RESP 16; TEMP 36.9; O2SAT 100
--- NOTE | 2024-05-16 08:26 | PM.OBPNVD ---
OB - PN: Subj Subjective Date/time seen: 05/16/24 08:26 Interval history: POD#2 s/p PLTCS under general anesthesia Doing well, pain controlled on oral medications Voiding without issue Passing flatus Baby doing well, bottle feeding, working on weight gain Patient comments: no complaints, pain well controlled, tolerating diet and flatus present OB - PN: Obj Data Labs 05/14/24 04:28 OB - PN A/P Plan day: 1 Comments: Post Op LTCS - no problems, routine recovery Time Spent With Patient Time: Total time spent is greater than 50% in coordination of care (as documented) at patient's floor/unit and/or counseling patient: Exam Const: General: cooperative, healthy appearing, comfortable and no acute distress Resp: Auscultation: no crackles, no rales, no rhonchi and no wheezes Cardio: Rhythm: regular rhythm Heart sounds: no click and no murmurs GI: Inspection: non-distended Auscultation: normal bowel sounds Extrem: General: normal to inspection, no pedal edema and no calf tenderness
[2024-05-16 09:10] VITALS: BP 138/88; PULSE 72; RESP 16; TEMP 36.7; O2SAT 100
[2024-05-16] MEDS: MULTIVIT/MIN/PREN/FOL AC/IRON TABLET 1 TAB PO (09:14)
[2024-05-16] MEDS: POLYSACCHARIDE IRON COMPLEX 150 MG CAPSULE PO ×2 (09:15→17:17)
[2024-05-16] MEDS: DOCUSATE SODIUM 100 MG CAPSULE PO ×2 (09:15→17:17)
[2024-05-16] MEDS: SIMETHICONE 80 MG TAB.CHEW PO ×2 (09:15→15:28)
[2024-05-16 12:10] VITALS: BP 140/90; PULSE 70
[2024-05-16 16:30] VITALS: BP 147/94; PULSE 77; RESP 16; TEMP 36.9; O2SAT 100
[2024-05-16 21:10] VITALS: BP 145/91; PULSE 79; RESP 18; TEMP 36.9; O2SAT 98
[2024-05-16] MEDS: LIDOCAINE 5% PATCH 1 PATCH TRANSDERM (21:10)
[2024-05-17 01:00] VITALS: BP 140/90; PULSE 59
[2024-05-17] MEDS: IBUPROFEN 600 MG TABLET PO ×2 (03:30→10:12)
[2024-05-17] MEDS: ACETAMINOPHEN 325 MG TABLET 650 MG PO ×2 (03:30→10:12)
[2024-05-17 04:10] VITALS: BP 138/91; PULSE 71
[2024-05-17] MEDS: HYDROcodone/acetaminophen (*CRX) 5-325 MG TABLET 1 TAB PO (04:10)
[2024-05-17 07:30] VITALS: BP 118/79; PULSE 61; RESP 16; TEMP 36.4; O2SAT 99
[2024-05-17] MEDS: TETANUS,DIPHTHERIA,AC PERTUSSIS ADULT (0.5 ML) BOOSTRIX IM (07:45)
[2024-05-17] MEDS: SIMETHICONE 80 MG TAB.CHEW PO (07:46)
[2024-05-17] MEDS: HYDROCORTISONE 1% 30 GM CREAM 1 APPLIC TOPICAL (07:46)
[2024-05-17] MEDS: DOCUSATE SODIUM 100 MG CAPSULE PO (07:47)
[2024-05-17] MEDS: MULTIVIT/MIN/PREN/FOL AC/IRON TABLET 1 TAB PO (07:47)
[2024-05-17] MEDS: POLYSACCHARIDE IRON COMPLEX 150 MG CAPSULE PO (07:47)
--- NOTE | 2024-05-17 08:59 | PM.OBPNVD ---
OB - PN: Subj Subjective Date/time seen: 05/17/24 08:59 Interval history: POD#2 s/p PLTCS under general anesthesia Doing well, pain controlled on oral medications Voiding without issue Passing flatus Baby doing well, bottle feeding, working on weight gain Patient comments: no complaints, pain well controlled, incisional pain, tolerating diet and flatus present OB - PN: Obj Data Labs 05/14/24 04:28 OB - PN A/P Plan day: 3 Plan: routine care, discharge home and other Comments: Incision check in one week. Given precautions Time Spent With Patient Time: Total time spent is greater than 50% in coordination of care (as documented) at patient's floor/unit and/or counseling patient: Exam Const: General: comfortable, no acute distress and alert Resp: Effort & Inspection: normal respiratory effort Auscultation: no crackles, no rales and no rhonchi Cardio: Rate: regular rate Heart sounds: no click, no murmurs and no rubs GI: Inspection: non-distended GI Palp: No Tenderness to palpation present (GI) Auscultation: normal bowel sounds Other: Incision - CDI Extrem: General: normal to inspection, no pedal edema and no calf tenderness
--- NOTE | 2024-05-17 09:00 | PM.OBDSVD ---
DS: Admitting Diagnosis Discharge Date 05/17/24 Admitting Diagnosis term , breech , preeclampsia DS: Discharge Diagnosis Discharge Diagnosis (1) S/P : Code(s): Z98.891 - History of uterine scar from previous surgery Status: Acute (2) Pre-eclampsia, mild: Code(s): O14.00 - Mild to moderate pre-eclampsia, unspecified trimester Status: Acute OB - DS: Summary OB Procedures : PIH Mgmt OB Procedures Intrapartum: OB Procedures: : None Peripartum Data Procedures: Procedures Operation Date: 05/13/24 12:00 Actual Procedure Side Surgeon p Section Otto Spencer MD Time Spent with Patient Time attestation: Total time spent providing and/or coordinating discharge services: DS: Data Data Completed and Pending Pending studies at discharge: Pending at discharge 05/13/24 12:29 Surgical [PTH] Routine Discharge Plan Discharge Discharging Clinician: Abrahan Sanders Patient Disposition: Home, Self-Care Activity: pelvic rest Diet: regular Patient Instructions: Antibiotic Form Stand Alone Forms: General Discharge Information Follow-up/Referrals: Abrahan Sanders MD [Physician] - Discharge Medications: New oxycodone-acetaminophen 5-325 mg tablet 1 tablet PO Q4H PRN (Reason: pain) Qty: 25 0RF Continued juhglelc-majhlyuat-MS 3.5-10,000-10 mg-unit-mg/mL drops,suspension 1 drp LEFT EYE Q8H 7 Days Qty: 7.5 0RF polymyxin B sulf-trimethoprim [Polytrim] 10,000 unit- 1 mg/mL drops 1 drp LEFT EYE Q3H 7 Days Qty: 10 0RF Rx Instructions: while awake; do not exceed 6 doses in 24 hours amoxicillin 875 mg tablet 875 mg Date of admission: 05/13/24 09:19 Primary Care Provider: UNKNOWN,DOCTOR Admitting Provider: Otto Spencer Attending physician on admission: Otto Spencer Condition: Stable
[2024-05-17] MEDS: INFLUENZA TRIVALENT VACCINE 45 MCG/0.5 ML SYRINGE IM (10:13)
--- NOTE | 2024-05-17 11:05 | PC.NURSE ---
Patient instructed on viewing the discharge video Mother & Baby Care, The First Two Weeks . Patient was given the opportunity and encouraged to ask questions. Patient verbalized understanding of information shared and has been given the mother/baby guide for home reference.
[2024-05-18 13:26] VITALS: BP 139/89; PULSE 85; RESP 20; TEMP 36.6; O2SAT 98
--- NOTE | 2024-05-20 03:59 | WPDHPUPDATE1 ---
History and Physical Update Update Date/Time: 05/13/24 1300 History and Physical has been reviewed, including an updated exam of the patient. There are NO changes in the patient's condition. Risks, benefits, and alternatives have been discussed and questions answered. Patient agrees to proceed with procedure.
== END 2024-05-17 12:00 | disposition home or self-care (01) | DRG 540 ==
LOC: ANHOBPP 11:59 → ANHOB2 05-17 09:02 → ANHLDR 05-19 12:21 → ANHOB2 05-19 12:21 → ANHOBPP 05-19 12:21
PROVIDERS: Admitting Provider Obstetrics & Gynecology; Visit Provider Obstetrics & Gynecology
PROC: 10D00Z1 Extraction of Products of Conception, Low, Open Approach (ICD-10-PCS; CPT 59514; principal; 2024-05-13 12:00)
DX: O42.013 Preterm premature rupture of membranes, onset of labor within 24 hours of rupture, third trimester (principal); Z37.0 Single live birth; Z3A.25 25 weeks gestation of pregnancy; Z23 Encounter for immunization; O60.14X0 Preterm labor third trimester with preterm delivery third trimester, not applicable or unspecified; O32.8XX0 Maternal care for other malpresentation of fetus, not applicable or unspecified; O14.04 Mild to moderate pre-eclampsia, complicating childbirth
CPT/HCPCS: 36415; 76819; 85025; 86592; 86703; 86850; 86900; 86901; 88307; 90471; 90656; 90715; A9270; G0008; G0378; G0379; G0432; J0456; J0690; J1170; J1885; J2270; J2590; J3010; J7120